=== PATIENT | female | born 1965 | race African-American/Black ===

== ENCOUNTER 2017-01-29 19:56 | Emergency (ER) | payer MEDICARE, OTHER ==
[~2017-01-29] VITALS: Ht 175.3 cm; Wt 86.2 kg
[~2017-01-29 19:56] MED LIST: ABILIFY20 MG ORAL; BENADRYL50 MG ORAL; BENZTROPINE MESY2 MG ORAL; COLACE100 MG ORAL; CYCLOBENZAPRINE10 MG ORAL; DIVALPROEX SOD500 M2 PO; HALOPERIDOL10 MG ORAL; IBUPROFEN600 MG ORAL; LORATADINE10 M2 PO; LORAZEPAM2 MG ORAL; METFORMIN HCL500 M1 ORAL; MIRTAZAPINE30 MG ORAL; VICODIN 5-5001 EACH PO
[2017-01-29] MEDS ORDERED: Ketorolac 60mg Inj IM ONE (20:45)
[2017-01-29] MEDS ORDERED: IBUPROFEN600 MG ORAL (21:17)
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
[2017-01-29 21:47] VITALS: BP 114/86
[2017-01-30 00:45] VITALS: BP 112/83
[2017-01-30 00:51] VITALS: BP 112/83
== END 2017-01-30 00:51 | disposition home or self-care (01) ==
LOC: EDUNIT# 19:56 → EDBD 19:56 → EMR 21:19
DX: M54.5 Low back pain (principal); F91.9 Conduct disorder, unspecified; M54.2 Cervicalgia; I10 Essential (primary) hypertension; J45.909 Unspecified asthma, uncomplicated; E11.9 Type 2 diabetes mellitus without complications; Z91.011 Allergy to milk products
CPT/HCPCS: 96372; 99283